=== PATIENT | female | born 2000 | race Caucasian/White ===

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

== ENCOUNTER → 2018-05-06 12:57 | Emergency (ER) | payer SELFPAY ==
[~2018-05-06 12:57] MED LIST: PPD test dose* 5 TU/0.1 ML TEST (*USE PPD ORDER SET*) ONE
== END | disposition home or self-care (01) ==
LOC: OHCORT 12:57
DX: Z00.00 Encounter for general adult medical examination without abnormal findings (principal); Z11.1 Encounter for screening for respiratory tuberculosis

== ENCOUNTER 2019-08-08 20:04 | Emergency (ER) | payer BC ==
[2019-08-08 20:40] VITALS: BP 123/83
[2019-08-08 21:19] LABS: Influenza A Molecular Negative (Negative); Influenza B Molecular Negative (Negative)
[2019-08-08] MEDS ORDERED: Meclizine TAB* 12.5 MG PO ONE (21:44)
--- NOTE | 2019-08-08 21:50 | UC ---
Dizzy HPI HPI Summary: 18 yo female with 4 day hx of runny nose and cough ear full/painful and decreased hearing now with vertigo with change in position no f/c no tinnitis no stiff neck - History Of Current Complaint Chief Complaint: UCRespiratory Stated Complaint: COUGH, EAR COMPLAINT, DIZZINESS Time Seen by Provider: 08/08/19 21:26 Hx Obtained From: Patient Hx Last Menstrual Period: 2 yrs Onset/Duration: Gradual Onset, Lasting Hours Timing: Minutes Severity Initially: Moderate Severity Currently: Moderate Pain Intensity: 4 Pain Scale Used: 0-10 Numeric Character: Room Spinning Aggravating Factor(s): Position Change, Supine To Erect, Change In Head Position Alleviating Factor(s): Rest - Allergies/Home Medications Allergies/Adverse Reactions: Allergies Allergy/AdvReac Type Severity Reaction Status Date / Time anesthetics Allergy vomiting, Uncoded 08/08/19 20:41 fainting Home Medications: Home Medications Acetaminophen [Acetaminophen Extra Strength] 1,000 mg PO DAILY PRN 08/08/19 [ History Confirmed 08/08/19] Cyclobenzaprine TAB* [Flexeril 10 MG TAB*] 10 mg PO TID 08/08/19 [History Confirmed 08/08/19] Fluticasone NASAL SPRAY 50MCG* [Flonase NASAL SPRAY 50MCG*] 2 spray BOTH NARES BID #1 btl 08/08/19 [Rx] Meclizine TAB* [Antivert 12.5 TAB*] 25 mg PO BID 08/08/19 [History Confirmed 03/19] Meclizine TAB* [Antivert TAB*] 25 mg PO TID PRN #20 tab 08/08/19 [Rx] Monthly Sq Migraine Med 216 units SUBCUT MONTHLY PRN 08/08/19 [History Confirmed 08/08/19] Promethazine HCl 1 dose PO SEE INSTRUCTIONS 08/08/19 [History Confirmed 08/08/19 ] Topiramate TAB(*) [Topamax 25 MG tab] 50 mg PO BID 08/08/19 [History Confirmed 08/08/19] medroxyPROGESTERone ACETATE* [DEPO-Provera] 150 mg IM SEE INSTRUCTIONS 08/08/19 [History Confirmed 08/08/19] PMH/Surg Hx/FS Hx/Imm Hx Previously Healthy: Yes Neurological History: Migraine - Surgical History Surgical History: Yes Surgery Procedure, Year, and Place: left foot surgery - Family History Known Family History: Negative: Cardiac Disease, Hypertension - Social History Alcohol Use: None Substance Use Type: None Smoking Status (MU): Never Smoked Tobacco Review of Systems All Other Systems Reviewed And Are Negative: Yes Constitutional: Positive: Negative Skin: Positive: Negative Eyes: Positive: Negative ENT: Positive: Ear Ache, Nasal Discharge, Sinus Congestion Respiratory: Positive: Cough Cardiovascular: Positive: Negative Gastrointestinal: Positive: Negative Genitourinary: Positive: Negative Motor: Positive: Negative Neurovascular: Positive: Negative Musculoskeletal: Positive: Negative Neurological/Mental Status: Positive: Negative Psychological: Positive: Negative Physical Exam Triage Information Reviewed: Yes Appearance: Well-Appearing, No Pain Distress, Well-Nourished Vital Signs: Initial Vital Signs Temp 98.9 F 08/08/19 20:31 Pulse 102 08/08/19 20:31 Resp 18 08/08/19 20:31 BP 123/83 08/08/19 20: Pulse Ox 98 08/08/19 20:31 Vital Signs Reviewed: Yes Eyes: Positive: Conjunctiva Clear, Other: - eomi/perrl ENT: Positive: Nasal congestion, TM bulging, Uvula midline. Negative: Hearing grossly normal, Nasal drainage, Tonsillar swelling, Tonsillar exudate, Trismus, Muffled voice, Hoarse voice, Dental tenderness, Sinus tenderness Dental Exam: Normal Neck: Positive: Supple, Nontender, No Lymphadenopathy Respiratory: Positive: Lungs clear, Normal breath sounds, No respiratory distress, No accessory muscle use Cardiovascular: Positive: RRR, No Murmur Musculoskeletal: Positive: ROM Intact, No Edema Neurological: Positive: Alert, Other: - GCS 15/15, non focal neuro exam Psychological Exam: Normal Skin Exam: Normal Dizzy Course/Dx - Differential Dx/Diagnosis Provider Diagnosis: Acute serous otitis media, bilateral, Positional vertigo Discharge ED - Sign-Out/Discharge Documenting (check all that apply): Patient Departure All imaging exams completed and their final reports reviewed: No Studies - Discharge Plan Condition: Stable Disposition: HOME Prescriptions: Fluticasone NASAL SPRAY 50MCG* [Flonase NASAL SPRAY 50MCG*] 2 spray BOTH NARES BID #1 btl Meclizine TAB* [Antivert TAB*] 25 mg PO TID PRN #20 tab PRN Reason: Dizziness Patient Education Materials: Vertigo (ED), Serous Otitis Media (ED) Forms: *Work Release Referrals: No Primary Care Phys,NOPCP [Primary Care Provider] - - Billing Disposition and Condition Condition: STABLE Disposition: Home
== END 2019-08-08 21:55 | disposition home or self-care (01) ==
LOC: UCCORT 20:04
DX: H65.03 Acute serous otitis media, bilateral (principal); H81.13 Benign paroxysmal vertigo, bilateral; R05 Cough; G43.909 Migraine, unspecified, not intractable, without status migrainosus; R09.89 Other specified symptoms and signs involving the circulatory and respiratory systems; Z88.4 Allergy status to anesthetic agent
CPT/HCPCS: 99212; A9270-GY; G0463